=== PATIENT | male | born 1975 | race Caucasian/White ===

== ENCOUNTER 2017-09-08 12:05 | Emergency (ER) | payer MEDICAID, OTHER ==
[2017-09-08] MEDS: TRIMETHOPRIM/SULFAMETHOX (DS) TAB PO (17:51)
[2017-09-08] MEDS: CEPHALEXIN 500 MG CAP PO (17:51)
[2017-09-08] MEDS: IBUPROFEN 600 MG TAB PO (17:51)
[2017-09-08] MEDS: HYDROCODONE/APAP (5/325) TAB PO (17:51)
[2017-09-08] MEDS: LIDOCAINE 1% (MDV) 10 ML INJ INFIL (17:52)
[2017-09-08] MEDS: ONDANSETRON (ODT) 4 MG TAB ODT (19:56)
== END 2017-09-08 20:02 | disposition home or self-care (01) ==
LOC: FTE 12:05
DX: K04.7 Periapical abscess without sinus (principal)
CPT/HCPCS: 10060; 70486; 99284-25